=== PATIENT | female | born 1945 | race Caucasian/White ===

== ENCOUNTER 2022-07-03 10:28 | Emergency (ER) | payer MEDICARE, OTHER ==
[~2022-07-03] VITALS: Ht 154.9 cm; Wt 72.1 kg
[~2022-07-03 10:28] MED LIST: CALCIUM 250+D1 EACH PO; CLARITIN10 MG PO; FLONASE ALLERG9.9 ML NAS; PROBIOTIC1 EAC3 PO
[2022-07-03] MEDS ORDERED: SIMVASTATIN20 MG PO (10:44)
[2022-07-03] MEDS ORDERED: GLUCOSAMINE CH1 EAC1 PO (10:46)
[2022-07-03] MEDS ORDERED: ADVIL200 M1 PO (10:48)
== END 2022-07-03 11:34 | disposition home or self-care (01) ==
LOC: ED 10:28
DX: S80.01XA Contusion of right knee, initial encounter (principal); W23.0XXA Caught, crushed, jammed, or pinched between moving objects, initial encounter
CPT/HCPCS: 73560; 99283-25

== ENCOUNTER 2025-09-30 05:40 | Day surgery (SDC) | payer MEDICARE, OTHER ==
[~2025-09-30] VITALS: Ht 154.9 cm; Wt 73.0 kg
[~2025-09-30 05:40] MED LIST changes: +ADVIL200 M1 PO; +GLUCOSAMINE CH1 EAC1 PO; +HAIR, SKIN & N1 EACH PO; +LACTATED RINGER'S 1,000 ML IV SCH; +ONDANSETRON ODT4 MG PO; +SIMVASTATIN20 MG PO
[2025-09-30] MEDS ORDERED: SODIUM CHLORIDE 0.9% 100 ML IV ONE (05:50)
[2025-09-30 06:07] VITALS: BP 129/54
[2025-09-30] MEDS ORDERED: DEXAMETHASONE SOD PHOS 4 MG/ML VIAL ONE (06:23)
[2025-09-30] MEDS ORDERED: SODIUM CHLORIDE 0.9% 40 ML IV ONE (06:23)
[2025-09-30] MEDS ORDERED: Ropivacaine HCl 0.5% 30 ML VIAL ONE (06:23)
[2025-09-30] MEDS ORDERED: LIDOCAINE HCL 2% 5 ML SDV ONE ×2 (06:23→06:54)
[2025-09-30] MEDS ORDERED: KETOROLAC TROMETHAMINE 30 MG/ML VIAL IV PRN (07:00)
[2025-09-30] MEDS ORDERED: IBLOOD GLUCOSE TEST STRIP 1 EA TEST VI PRN ×2 (07:00→08:00)
[2025-09-30] MEDS ORDERED: OXYCODONE HCL 5 MG TAB PO PRN (07:00)
[2025-09-30] MEDS ORDERED: CEFAZOLIN SODIUM 2 GM in SODIUM CHLORIDE 0.9% 100 ML IV SCH ×2 (07:00→15:00)
[2025-09-30] MEDS ORDERED: PANTOPRAZOLE SODIUM 40 MG TABEC PO SCH (07:00)
[2025-09-30] MEDS ORDERED: OXYCODONE HCL 5 MG TAB PO SCH (07:00)
[2025-09-30] MEDS ORDERED: ROPIVACAINE IN 0.9% SOD CHL/PF 545 ML ELS.PMP.HR IRRIGATION SCH (07:00)
[2025-09-30] MEDS ORDERED: DULOXETINE HCL 30 MG CAP PO SCH (07:00)
[2025-09-30] MEDS ORDERED: LIDOCAINE HCL 1% 5 ML SDV INJ ONE (07:00)
[2025-09-30] MEDS ORDERED: TRANEXAMIC ACID IN NACL,ISO-OS 1,000 MG/100 ML PIGGYBACK IV SCH ×2 (07:00→09:49)
[2025-09-30] MEDS ORDERED: fentaNYL citrate 50 MCG/ML SDV IV PRN (08:00)
[2025-09-30] MEDS ORDERED: NALOXONE HCL 0.4 MG SYR IV PRN (08:00)
[2025-09-30] MEDS ORDERED: ASPIRIN325 MG PO (08:11)
[2025-09-30] MEDS ORDERED: DICLOFENAC SODI75 MG PO (08:11)
[2025-09-30] MEDS ORDERED: CEFUROXIME250 MG PO (08:11)
[2025-09-30] MEDS ORDERED: ACETAMINOPHEN500 MG PO (08:12)
[2025-09-30] MEDS ORDERED: LACTATED RINGER'S 1,000 ML IV ONE (08:12)
[2025-09-30] MEDS ORDERED: DULOXETINE HCL30 MG PO (08:12)
[2025-09-30] MEDS ORDERED: OXYCODONE HCL5 M1 PO (08:12)
[2025-09-30] MEDS ORDERED: SENNA LAX8.6 MG PO (08:12)
[2025-09-30] MEDS ORDERED: KETOROLAC TROMETHAMINE 30 MG/ML VIAL ONE (08:21)
--- NOTE | 2025-09-30 08:41 | NUR ---
09/30/25 0841 Namita Schroeder 0821: PT ARRIVED TO PACU VIA STRETCHER. PT ON RA. PT HAS NO COMPLAINTS OF PAIN OR NAUSEA AT THIS TIME. PTS DRESSING C/D/I. PT HAS GOOD PEDAL PULSES AND CAP REFILL LESS THAN 2 SECONDS. SPINAL LEVEL L2 AT THIS TIME. 0825: PT REMAINS ON RA WITH NO COMPLAINTS AT THIS TIME. 0835: PT REMAINS ON RA. NO COMPLAINTS OF PAIN OR NAUSEA. DRESSING C/D/I.
[2025-09-30 08:52] VITALS: BP 133/60
--- NOTE | 2025-09-30 09:10 | NUR ---
LE 0850-PT BACK TO ROOM FROM PACU ON RA. RECEIVED REPORT FROM ANTONIA ROSE. PT IS AWAKE. RESP EVEN AND UNLABORED. PT DENIES PAIN, STATES R LEG FEELS TIGHT. ON-Q PUMP SET AT 4. CRYO CUFF IN PLACE AND RUNNING. PT DRINKING WATER. LE 0855-PT RATES PAIN AT A 4/10. PT IS EATING CRACKERS. PT WOULD LIKE A PAIN PILL. LE 0900-PAIN MEDICATION GIVEN PER EMAR. PT RATES PAIN 6/10. NO OTHER NEEDS AT THIS TIME. CALL LIGHT WITHIN REACH. AT BEDSIDE.
--- NOTE | 2025-09-30 09:41 | NUR ---
LE 0935-PT RATES PAIN 03/16. VO PER MEG FRANCES FOR OFIRMEV. LE 0940-OFIRMEV GIVEN PER EMAR.
[2025-09-30] MEDS ORDERED: ACETAMINOPHEN 1,000 MG/100 ML VIAL IV ONE (09:45)
--- NOTE | 2025-09-30 09:53 | NUR ---
0952-PT C/O NAUSEA. VO PER VENTURA FRANCES FOR ZOFRAN 4MG IV. ORDER SENT TO PHARMACY.
[2025-09-30 09:57] VITALS: BP 132/55
--- NOTE | 2025-09-30 10:03 | NUR ---
ZOFRAN GIVEN PER EMAR. O2 DECREASES TO 88% ON RA. O2 AT 2L VIA NC. NO OTHER NEEDS AT THIS TIME. CALL LIGHT WITHIN REACH. AT BEDSIDE.
[2025-09-30 10:54] VITALS: BP 119/97
--- NOTE | 2025-09-30 10:59 | NUR ---
PT LAYING IN BED WITH EYES CLOSED. PT OPENS EYES WITH VERBAL STIMULI. RESP EVEN AND UNLABORED. PT RATES PAIN 3/10, DENIES NAUSEA. ON-Q PUMP SET AT 4 [address] CR[address]FF IN PLACE AND RUNNING. PT TAKING SIPS OF WATER. NO OTHER NEEDS AT THIS TIME. CALL LIGHT WITHIN REACH.
--- NOTE | 2025-09-30 11:48 | OR ---
[facility] [address] [facility] [place], [place] [address] Signed DATE OF OPERATION: 09/30/2025 SURGEON: Kee Sanabria MD PREOPERATIVE DIAGNOSIS: Degenerative joint disease, right knee. POSTOPERATIVE DIAGNOSIS: Degenerative joint disease, right knee. PROCEDURE PERFORMED: Right total knee arthroplasty with Fan. ROAD [employer]ING TRUCK DRIVER: Sarah Beth Cruz PA-C. Sarah Beth was present and critical for all portions of procedure. ANESTHESIA: Spinal. BLOOD LOSS: 175 mL. TOURNIQUET TIME: Zero. IMPLANTS: Cooper Triathlon size 3, 10 mm polyethylene and a 29 mm patella. 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 Risks and benefits of operative treatment were discussed with her once nonoperative treatment was unsuccessful. She elected to proceed. DESCRIPTION OF PROCEDURE: Once consent was obtained, she was taken to the operating room. After adequate anesthesia she was placed on the OR table with a hip bump. The leg was then prepped and draped in a standard sterile fashion. The knee was approached through standard anterior midline incision, carried through skin and subcutaneous tissue. Skin flaps were developed medially and laterally. A subvastus arthrotomy was then performed and Electronically Signed By: KEE SANABRIA MD 09/30/25 1148 PATIENT NAME: NIECY GUERRERO OPERATIVE REPORT DATE OF : 47 REPORT #: [id number] PHYSICIAN: KEE SANABRIA MD PCP: SHANTA RODRIGUEZ MD REPORT IS CONFIDENTIAL AND NOT TO BE RELEASED WITHOUT AUTHORIZATION [facility] [address] [place], [place] [address] Signed superior release was performed. The patella was then mobilized laterally. The MCL was elevated as a sleeve around to the posteromedial corner. The infrapatellar fat pad was excised. The anterior horns of menisci were transected as was the ACL. PCL was found to be intact. The computer navigation rays were then placed in the distal femur and proximal tibia. The leg was then registered with the computer followed by the fine anatomic points of the knee. The four ligamentous poses were then undertaken and adjustments were made to the computer plan to balance the ligaments. Once this was completed, the robot was brought in, four straight cuts and two angle cuts were made with care taken to protect the patellar tendon and MCL. The bony remnants removed as were any remaining osteophytes. The posterior osteophytes removed off the femur. Posterior release was performed. The trials were then positioned. Knee was taken from 0 to 130 degrees with good stability throughout. The patella tracked well. Patella was then cut, sized and drilled for a 29 mm patella. Distal femoral drill holes were completed and the proximal tibia was completed using the keel punch followed by the drill holes. The prosthesis was obtained. The tibia was impacted until it was seated flush with the cut. The polyethylene was snapped into position and the femur was impacted. The knee was extended and loaded. The patella was then clamped into position again until it was seated flush. The patellar tracking was checked and found to be good. Periarticular soft tissues were injected with 80 mL ropivacaine Toradol mixture. The knee was then irrigated with one bottle Surgiphor followed by normal saline. The On-Q pain pump was percutaneously placed into the adductor canal from the suprapatellar pouch. The arthrotomy was then closed using combination of #2 FiberWire, #2 Stratafix, subcutaneous tissue with 0 Stratafix and skin with 3-0 Stratafix. Wound was sealed with LiquiBand and dressed with Acticoat-7 dressing, ABDs and CECIL wrap. She tolerated the procedure well. All sponge, needle, and instrument counts were correct. Kee Sanabria MD BA/MODL /[id number] Copies: ~ Electronically Signed By: KEE SANABRIA MD 09/30/25 1148 PATIENT NAME: NIECY GUERRERO OPERATIVE REPORT DATE OF : 47 REPORT #: [id number] PHYSICIAN: KEE SANABRIA MD PCP: SHANTA RODRIGUEZ MD REPORT IS CONFIDENTIAL AND NOT TO BE RELEASED WITHOUT AUTHORIZATION
[2025-09-30 12:37] VITALS: BP 135/61
--- NOTE | 2025-09-30 12:48 | NUR ---
LE 1140-PHYSICAL THERAPY IN ROOM WITH PT. LE 1210-PT BACK IN ROOM FROM PHYSICAL THERAPY. CRYO CUFF IN PLACE AND RUNNING. CALL LIGHT WITHIN REACH.
--- NOTE | 2025-09-30 12:49 | NUR ---
LE 1230-PT AMBULATES WITH WALKER TO RESTROOM. PT ABLE TO VOID 100ML. LE 1236-PT BACK TO BED. RESP EVEN AND UNLABORED. PT RATES PAIN 2/10, DENIES NAUSEA. CRYO CUFF IN PLACE AND RUNNING. ON-Q PUMP SET AT 4. PT READY TO GO HOME. WILL GIVE ANTIBIOTICS THEN PT WILL GET DRESSED. IN ROOM. NO OTHER NEEDS AT THIS TIME. CALL LIGHT WITHIN REACH.
--- NOTE | 2025-09-30 14:45 | NUR ---
REED 1305-PT WILL GET DRESSED. IN ROOM TO HELP.
--- NOTE | 2025-09-30 14:45 | NUR ---
1315-WENT OVER DISCHARGE INSTRUCTIONS WITH PT AND HER . WENT OVER POSTOP MEDCIATIONS AND ALL QUESTIONS ANSWERED. 1325-PT AMBULATES WITH WALKER TO WHEELCHAIR. RIDE PROVIDED TO FRONT OF HOSPITAL WHERE WAS WAITING WITH THE CAR.
[2025-09-30] MEDS ORDERED: ACETAMINOPHEN 500 MG TAB PO SCH (15:00)
[2025-09-30] MEDS ORDERED: SENNOSIDES 1 TAB PO SCH (21:00)
[2025-10-01] MEDS ORDERED: DICLOFENAC SOD 75 MG TABEC PO SCH (08:00)
[2025-10-01] MEDS ORDERED: ASPIRIN 325 MG TAB PO SCH (09:00)
[2025-10-01] MEDS ORDERED: DULOXETINE HCL 30 MG CAP PO SCH (09:00)
== END 2025-09-30 13:25 | disposition home or self-care (01) ==
LOC: DS 05:40
PROVIDERS: ATTEND Specialist
PROC: 3E0T3BZ Introduction of Anesthetic Agent into Peripheral Nerves and Plexi, Percutaneous Approach (ICD-10-PCS; 2025-09-30)
PROC: 0SRC0JZ Replacement of Right Knee Joint with Synthetic Substitute, Open Approach (ICD-10-PCS; principal; 2025-09-30 07:00)
DX: M17.11 Unilateral primary osteoarthritis, right knee (principal); G89.18 Other acute postprocedural pain; E78.00 Pure hypercholesterolemia, unspecified; Z79.899 Other long term (current) drug therapy
CPT/HCPCS: 0055T; 27447; 64447; 01402; 64454; 64473; 73560; 97110; 97161; 97530; A9270; C1713; C1776; J0131; J0688; J1100; J1885; J2003; J2405; J2704; J2795; J7121